=== PATIENT | male | born 1990 | race Hispanic/Latino ===

== ENCOUNTER 2020-05-15 21:00 | Emergency (ER) | payer OTHER ==
[2020-05-15 21:31] LABS: APPEARANCE,URINE Clear (CLEAR); BILIRUBIN,URINE Negative (NEGATIVE); COLOR,URINE Yellow (YELLOW); GLUCOSE, URINE (UA) 500 mg/dL (NEGATIVE); KETONES,URINE Negative (NEGATIVE); LEUKOCYTE ESTERASE ,URINE Negative (NEGATIVE); NITRATE,URINE Negative (NEGATIVE); OCCULT BLOOD,URINE Negative (NEGATIVE); PH,URINE 6.5 (5.0-8.0); PROTEIN,URINE Negative (NEGATIVE)
[2020-05-15] MEDS ORDERED: KETOROLAC TROMETHAMINE 30MG/ML ONE (21:36)
[2020-05-15] MEDS ORDERED: MORPHINE SULFATE 4 MG/1ML SYG ONE (21:36)
[2020-05-15] MEDS ORDERED: CYCLOBENZAPRINE HCL 10 MG TABLET ONE (21:37)
[2020-05-15 21:46] LABS: BACTERIA,URINE None Seen /HPF (None Seen); RBC,URINE 0-1 /HPF (0-1); SQUAMOUS EPITHELIAL CELL,UR Few /HPF (0-2); WBC,URINE 0-1 /HPF (0-1)
== END 2020-05-15 22:01 | disposition home or self-care (01) ==
LOC: EDH 21:00
DX: M54.16 Radiculopathy, lumbar region (principal); M54.41 Lumbago with sciatica, right side; Z98.890 Other specified postprocedural states
CPT/HCPCS: 81001; 96374; 96375; 99284; J1885; J2270

== ENCOUNTER 2023-06-10 10:05 | Emergency (ER) | payer OTHER ==
[~2023-06-10] VITALS: Ht 185.4 cm; Wt 124.3 kg
[2023-06-10 10:45] VITALS: BP 149/96; PULSE 92; RESP 16; O2SAT 97
[2023-06-10] MEDS ORDERED: BACITRACIN 1 EACH PACKET TP ONE (12:00)
[2023-06-10 13:16] LABS: BASOPHILS # (AUTO) 0.06 K/uL (0.00-0.20); BASOPHILS % (AUTO) 0.4 % (0.0-5.0); EOSINOPHILS # (AUTO) 0.14 K/uL (0.00-0.70); HEMATOCRIT 43.4 % (42-54); IMMATURE GRANULOCYTE ABSOLUTE 0.04 K/uL (0-1); LYMPHOCYTES % (AUTO) 22.4 % (21.0-51.0); MEAN CORPUSCULAR HEMOGLOBIN 32.9 pg (27.0-33.0); MEAN CORPUSCULAR HGB CONC 34.6 g/dL (32.0-36.0); MEAN CORPUSCULAR VOLUME 95.2 fL (79-99); MONOCYTES % (AUTO) 7.2 % (3.0-13.0); NEUTROPHILS # (AUTO) 9.2 K/uL (1.8-7.7); NEUTROPHILS % (AUTO) 68.7 % (40.0-77.0); PLATELET COUNT (AUTO) 315 K/uL (130-400); RED BLOOD CELL COUNT(AUTO) 4.56 MIL/uL (4.50-6.20); RED CELL DISTRIBUTION WIDTH 12.1 % (11.0-15.5); WHITE BLOOD COUNT (AUTO) 13.4 K/uL (4.8-10.8)
[2023-06-10 13:28] LABS: CREATININE 1.2 mg/dL (0.5-1.5); POTASSIUM 3.9 mmol/L (3.5-5.1)
[2023-06-10 13:33] LABS: ALBUMIN 3.6 g/dL (3.5-5.0); BILIRUBIN,TOTAL 0.7 mg/dL (0.2-1.0); TOTAL PROTEIN, SERUM 7.3 g/dL (6.0-8.3)
[2023-06-10] MEDS ORDERED: CEPH500B PO (14:15)
[2023-06-10] MEDS ORDERED: SULF1TAB42 PO (14:15)
== END 2023-06-10 14:25 | disposition home or self-care (01) ==
LOC: EDH 10:05
DX: E11.621 Type 2 diabetes mellitus with foot ulcer (principal); I10 Essential (primary) hypertension; Z79.899 Other long term (current) drug therapy; Z90.89 Acquired absence of other organs; Z48.00 Encounter for change or removal of nonsurgical wound dressing; Z98.890 Other specified postprocedural states; Z88.5 Allergy status to narcotic agent; Z88.8 Allergy status to other drugs, medicaments and biological substances
CPT/HCPCS: 36415; 73630; 80053; 83605; 85025

== ENCOUNTER 2025-03-07 13:16 | Emergency (ER) | payer BC ==
[~2025-03-07] VITALS: Ht 185.4 cm; Wt 129.3 kg
[~2025-03-07 13:16] MED LIST: ATOR10TA69 PO; LOSA-417 PO; METF-446 PO; METH-811 PO
[2025-03-07 13:44] VITALS: BP 165/90; PULSE 95; RESP 16; TEMP 99.9; O2SAT 98
[2025-03-07] MEDS ORDERED: AMOX1TAB16 PO (14:06)
--- NOTE | 2025-03-07 14:07 | ERN ---
General Chief Complaint: Earache Stated Complaint: EAR PAIN Time Seen by MD: 13:37 History of Present Illness Initial Comments 34-year-old male diabetic presents for right ear infection. Patient reports he developed right ear infection with the last 24 hours or so. He went to an urgent care and was diagnosed with a otitis externa. He does have a swollen lymph node on the right, which he has has a new. No fevers or other systemic illness. Allergies: Coded Allergies: iodine (Unverified Allergy, Unknown, 06/10/23) vancomycin (Unverified Allergy, Unknown, 06/10/23) Home Meds Reported Medications Methocarbamol (Methocarbamol) 500 Mg Tablet, 1 TAB PO BID for 30 Days, #60 TAB 0 Refills 09/03/24 Metformin HCl (Metformin HCl) 1,000 Mg Tablet, 1000 MG PO BID, TAB 01/06/24 Atorvastatin Calcium (Atorvastatin Calcium) 10 Mg Tablet, 10 MG PO HS, TAB 01/06/24 Losartan Potassium (Cozaar) 25 Mg Tablet, 25 MG PO DAILY, TAB 01/06/24 Past Medical History Past Medical History: Diabetes-Type II, Hypertension Medical History Other: NEUROPATHY Past Surgical History: Tonsillectomy, Other Surgical History Other: LT TMA ROS Dictation CONSTITUTIONAL: No chills, no fever, no weakness, no diaphoresis, no malaise. HEAD/FACE: No signs of trauma. EENT: Right ear pain RESPIRATORY: No cough, no orthopnea, no SOB, no stridor, no wheezing. CARDIOVASCULAR: No chest pain, no edema, no palpitations, no syncope. GASTROINTESTINAL/ABDOMINAL: No abdominal pain, no constipation, no diarrhea, no nausea, no vomiting. GENITOURINARY: No abnormal discharge, no dysuria, no frequent urination, no hematuria. No complaints of pain in the genitals. MUSCULOSKELETAL: No back pain, no gout, no joint pain, no joint swelling, no muscle pain, no muscle stiffness, no neck pain. INTEGUMENTARY: No change in color, no change in hair/nails, no dryness, no lesion, no lumps, no rash. NEUROLOGICAL/PSYCH: No anxiety, not depressed, no emotional problem, no headache, no numbness, no pre-existing deficit, no history of seizures, no tremors, no weakness. HEMATOLOGIC/LYMPHATIC: Not anemic, no history of blood clots, no apparent bleeding, no bruising, glands not swollen. All Systems Negative, Except as Noted. Physical Exam Physical Exam Dictation VITAL SIGNS: Reviewed. GENERAL APPEARANCE: Alert, oriented x3, no acute distress, obese. HEAD AND FACE: Non-traumatic. EYES: PERRL, pink conjunctivas, eyelid no trauma, anterior chamber clear. EARS: Pinnas intact and no signs of trauma or erythema. Ear canals clear and no discharge. TMs no erythema. NOSE: No discharge, no bleeding. OROPHARYNX: Mouth normal, teeth no caries, tongue pink. Pharynx clear, no erythema. Tonsils no exudates, no abscesses noted. Mucous membrane moist. NECK: Supple, non-tender, no thyromegaly, no masses, no JVD, no bruits. BREAST: Deferred. CHEST: No tenderness, no crepitus, no paradoxical movement, no retractions. LUNGS: Clear, well-ventilated, symmetric, no rales, no wheezing, no rhonchi, no stridor, good breath sounds bilaterally. HEART: Regular rate, regular rhythm, no murmur, no gallops. VASCULAR: No peripheral edema. ABDOMEN: Soft, positive bowel sounds, nondistended, no guarding, nontender, no rebound, no masses no hepatomegaly, no splenomegaly, no Poole's sign, no hernias. RECTAL: Deferred. GENITAL: Deferred. NEUROLOGICAL: Normal speech, gross motor function intact, gross sensory function intact. MUSCULOSKELETAL: Neck nontender, full range of motion, back nontender, full range of motion. EXTREMITIES: Nontender, full range of motion. SKIN: Color pink, dry, no turgor, no rash, no lacerations, no abrasions, no contusions. LYMPHATICS: Deferred. MDM CC: Right ear pain Historian: Patient Comorbidities: Diabetes, obesity Limitations by social determinants: None Differential diagnosis includes otitis externa versus otitis media your dental infection versus other. Vital signs stable No life threats on exam Clinically patient has a otitis externa, but he also has some swollen lymph nodes possibly otitis media. Patient is already taking Ciprodex we will recommend he continues We will discharge with a prescription for amoxicillin/clavulanic acid. Treatment in ED includes IM Toradol We will DC to PCP follow up. ED Course Vital Signs Date Time Temp Pulse Resp B/P (MAP) Pulse Ox O2 Delivery O2 Flow Rate FiO2 7/22/25 13:44 99.9 95 16 165/90 98 Room Air* 0 21 03/07/25 13:21 99.9 99 18 169/100 99 0 DX & DISP Disposition: Discharge Departure Impression: Primary Impression: Otitis externa Condition: Stable Assign Patient to: You have a right ear infection. Continue with the Cipro dexamethasone drops you have been provided. I have prescribed Augmentin, which is an antibiotic. Please take as prescribed. Alternate Tylenol (1000 mg) and ibuprofen (800 mg) every 4 hours as needed for pain or fever. These medications are [id number]. Follow up with your primary doctor in 48-72 hours for re-evaluation. Return to the emergency department sooner if you have any concerns. Scripts Amoxicillin/Potassium Clav (Amox Tr-K Clv 875-125 mg Tab) 875 Mg-125 Mg Tablet 1 TAB PO BID for 10 Days, #20 TAB 0 Refills Prov: CHANG LÓPEZ DO 03/07/25 Referrals: SELF,REFERRAL (PCP) CHANG LÓPEZ DO Mar 07, 2025 14:07
== END 2025-03-07 14:29 | disposition home or self-care (01) ==
LOC: EDH 13:16
DX: H60.91 Unspecified otitis externa, right ear (principal); E11.9 Type 2 diabetes mellitus without complications; E66.9 Obesity, unspecified; I10 Essential (primary) hypertension; Z79.84 Long term (current) use of oral hypoglycemic drugs; Z79.899 Other long term (current) drug therapy; Z88.1 Allergy status to other antibiotic agents; Z88.8 Allergy status to other drugs, medicaments and biological substances; Z90.89 Acquired absence of other organs
CPT/HCPCS: 99282; 99283; J1885